=== PATIENT | male | born 1995 | race Caucasian/White ===

== ENCOUNTER 2018-10-25 10:35 | Day surgery (SDC) | payer OTHER ==
[~2018-10-25 10:35] MED LIST: CEFAZOLIN 2 GM/50 ML (PMX) 50 ML IVPB
[2018-10-25] MEDS ORDERED: CEFAZOLIN 1 GM INJ (12:52)
[2018-10-25] MEDS ORDERED: PROPOFOL 20 ML (12:52)
[2018-10-25] MEDS ORDERED: MIDAZOLAM 1 MG/ML 2 ML INJ (12:53)
[2018-10-25] MEDS ORDERED: IOHEXOL 300MG/ML 30 ML BTL (12:55)
[2018-10-25] MEDS: IOHEXOL 300MG/ML 30 ML BTL INJ (13:00)
[2018-10-25] MEDS ORDERED: OXYCODONE/ACETAMINOPHEN (5/325) TAB PO (14:00)
[2018-10-25] MEDS ORDERED: FENTAnyl 50 MCG/ML VIAL IV (14:00)
[2018-10-25] MEDS ORDERED: HYDROCODONE/APAP (5/325) TAB PO (14:00)
[2018-10-25] MEDS: HYDROmorphONE 1 MG/5 ML IV SYRINGE IV (14:03)
[2018-10-25] MEDS: KETOROLAC 30 MG INJ IV (14:04)
[2018-10-25] MEDS: ONDANSETRON 4 MG INJ IV ×2 (14:04→15:13)
== END 2018-10-25 15:35 | disposition home or self-care (01) ==
LOC: SDS 10:35
DX: N32.89 Other specified disorders of bladder (principal)
CPT/HCPCS: 52005; 74430; 88305

== ENCOUNTER 2019-01-18 10:28 | Observation (INO) | payer OTHER ==
[2019-01-18] MEDS ORDERED: IOHEXOL 300MG/ML 30 ML BTL ×2 (11:55→11:57)
[2019-01-18] MEDS ORDERED: LIDOCAINE 2% (SDV) 5 ML INJ ×2 (12:11→19:34)
[2019-01-18] MEDS ORDERED: MIDAZOLAM 1 MG/ML 2 ML INJ ×2 (12:11→18:07)
[2019-01-18] MEDS ORDERED: FAMOTIDINE 20 MG INJ (12:11)
[2019-01-18] MEDS ORDERED: ONDANSETRON 4 MG INJ (12:11)
[2019-01-18] MEDS ORDERED: FENTAnyl 50 MCG/ML VIAL (12:11)
[2019-01-18] MEDS: LACTATED RINGER'S 1,000 ML IV (12:20)
[2019-01-18] MEDS ORDERED: morphine 2 MG INJ IV ×2 (13:00)
[2019-01-18] MEDS ORDERED: ALBUTEROL 0.083% (NEB) 2.5 MG/3 ML AMP HHN (13:00)
[2019-01-18] MEDS ORDERED: hydrALAzine 20 MG INJ IV (13:00)
[2019-01-18] MEDS ORDERED: OXYCODONE/ACETAMINOPHEN (5/325) TAB PO ×2 (13:00)
[2019-01-18] MEDS ORDERED: EPHEDrine 25 MG/5 ML SYG IV (13:00)
[2019-01-18] MEDS ORDERED: LABETALOL HCL 20MG INJ IV (13:00)
[2019-01-18] MEDS ORDERED: DIPHENHYDRAMINE 50 MG INJ IV ×2 (13:00→20:00)
[2019-01-18] MEDS ORDERED: KETOROLAC 15 MG INJ IV (13:00)
[2019-01-18] MEDS ORDERED: ONDANSETRON 4 MG INJ IV (13:00)
[2019-01-18] MEDS ORDERED: LEVALBUTEROL (NEB) 0.63 MG/3 ML AMP HHN (13:00)
[2019-01-18] MEDS ORDERED: HYDROmorphONE 1 MG/5 ML IV SYRINGE IV ×4 (13:00→20:00)
[2019-01-18] MEDS ORDERED: ATROPINE 1 MG/10 ML SYRINGE IV (13:00)
[2019-01-18] MEDS ORDERED: FENTAnyl 50 MCG/ML VIAL IV ×2 (13:00)
[2019-01-18] MEDS: LIDOCAINE 2% 20 ML UROJET SYRINGE (19:16)
[2019-01-18] MEDS ORDERED: PROPOFOL 20 ML (19:34)
[2019-01-18] MEDS ORDERED: CEFAZOLIN 1 GM INJ (19:35)
[2019-01-18] MEDS ORDERED: MEPERIDINE 25 MG INJ IV (20:00)
[2019-01-18] MEDS ORDERED: HYDROCODONE/APAP (5/325) TAB PO (20:00)
[2019-01-18] MEDS: HYDROmorphONE 1 MG/5 ML IV SYRINGE IV (20:28)
[2019-01-18] MEDS: FENTAnyl 50 MCG/ML VIAL IV (20:55)
[2019-01-18] MEDS: ONDANSETRON 4 MG INJ IV (21:54)
[2019-01-19] MEDS: LACTATED RINGER'S 1,000 ML IV (12:00)
== END 2019-01-19 13:21 | disposition home or self-care (01) ==
LOC: SDS 10:28 → REC 21:54 → MS1 22:40
DX: R31.9 Hematuria, unspecified (principal)
CPT/HCPCS: 52332; 74430